=== PATIENT | male | born 1990 | race Caucasian/White ===

== ENCOUNTER 2016-10-20 19:37 | Emergency (ER) | payer OTHER ==
[2016-10-20] MEDS ORDERED: NO MEDICATIONS (19:46)
== END 2016-10-20 20:11 | disposition home or self-care (01) ==
LOC: SED 19:37
DX: S29.012A Strain of muscle and tendon of back wall of thorax, initial encounter (principal); S39.012A Strain of muscle, fascia and tendon of lower back, initial encounter; M54.2 Cervicalgia; V49.40XA Driver injured in collision with unspecified motor vehicles in traffic accident, initial encounter; Y92.9 Unspecified place or not applicable
CPT/HCPCS: 99283